=== PATIENT | female | born 1970 | race Caucasian/White ===

== ENCOUNTER → 2016-04-29 | Outpatient (CLI) | payer OTHER ==
--- NOTE | 2016-04-29 15:56 | MA ---
Diagnostic Digital Right Mammogram History: Possible architectural distortion outer right breast seen only on the CC view. Comparison: Screening mammogram March 29, 2016. Technique: A true-lateral digital view and 2 spot films over the outer right breast with a small and large compression paddle. CC tomosynthesis acquisition. Breast Density: D Findings: Architectural distortion does not persist either on the spot compression views or on the cc tomosynthesis acquisition indicating that the appearance on the recent screening mammogram was likel y related to overlapping normal parenchymal structures. Impression: We will proceed to ultrasound to ensure that there is no occult lesion in the outer right breast in this patient with extremely dense breast parenchyma. BI-RADS: Category 0 . Additional imaging with ultrasound, which we will perform shortly.
--- NOTE | 2016-04-29 16:31 | US ---
Right Breast Ultrasound, complete History: Possible architectural distortion outer right breast, 6 to 7 cm from the nipple Technique: I first performed a directed physical examination of the breast and axilla. This was fol lowed by ultrasound exam with a high frequency linear transducer of the outer breast and axilla. Comparison: diagnostic mammogram earlier (negative) Findings: Physical examination of the outer right breast is negative for a mass. There is a ridge of tissue in the upper outer right breast if the patient states is normal for her and on ultrasound is a band of normal parenchyma. No sonographic mass , cyst or architectural distortion is identified. Impression: Negative physical examination, diagnostic mammogram and ultrasound. BI-RADS 1. Negative. Recommendation: Return to screening mammography in March 2017. Results and recommendation were discussed with the patient in detail, who is in agreement with the pl an.
== END ==
LOC: FIMAGING 15:18
PROVIDERS: ATTEND Internal Medicine
DX: R92.8 Other abnormal and inconclusive findings on diagnostic imaging of breast (principal)
CPT/HCPCS: 76641; 77061; G0206; G0279

== ENCOUNTER → 2017-04-20 | Outpatient (CLI) | payer OTHER | LOC: FIMAGING 07:39 | PROVIDERS: ATTEND Internal Medicine | DX: Z12.31 Encounter for screening mammogram for malignant neoplasm of breast (principal) | CPT/HCPCS: G0202 ==

== ENCOUNTER → 2017-04-26 | Outpatient (CLI) | payer OTHER | LOC: FIMAGING 14:52 | PROVIDERS: ATTEND Internal Medicine | DX: R92.8 Other abnormal and inconclusive findings on diagnostic imaging of breast (principal) ==

== ENCOUNTER → 2017-05-18 | Outpatient (CLI) | payer OTHER ==
[~2017-05-18] MED LIST: GADOBUTROL 10 ML VIAL IVP ONE
== END ==
LOC: FIMAGING 07:15
PROVIDERS: ATTEND Internal Medicine
DX: R92.2 Inconclusive mammogram (principal)
CPT/HCPCS: 0159T; A9585; C8908

== ENCOUNTER → 2018-05-17 | Outpatient (CLI) | payer OTHER | LOC: FIMAGING 07:29 | PROVIDERS: ATTEND Internal Medicine | DX: Z12.31 Encounter for screening mammogram for malignant neoplasm of breast (principal) ==